=== PATIENT | male | born 1955 | race Caucasian/White ===

== ENCOUNTER 2021-06-23 10:20 | Observation (INO) | payer MEDICARE ==
[~2021-06-23] VITALS: Ht 185.4 cm; Wt 97.9 kg
[2021-06-23] MEDS: DIVALPROEX 500MG *ER* TAB PO SCH ×2 (09:00→20:51)
[2021-06-23] MEDS ORDERED: NS 1,000 ML IV ONE (10:40)
[2021-06-23] MEDS ORDERED: LORazepam 2 MG/ML VIAL IV STA (11:05)
[2021-06-23 11:08] LABS: BASO # 0.1 10^3/uL (0.0-0.2); BASO % 0.8 % (0.0-1.0); EOS % 0.5 % (0.0-3.0); HEMATOCRIT 49.5 % (42.0-52.0); HEMOGLOBIN 16.7 g/dl (13.5-17.5); LYMPH # 2.2 10^3/uL (1.5-5.0); LYMPH % 26.1 % (24.0-44.0); MEAN CORPUSCULAR HEMOGLOBIN 29.7 pg (27.0-33.0); MEAN CORPUSCULAR HGB CONC 33.7 g/dl (32.0-36.5); MEAN CORPUSCULAR VOLUME 88.1 fl (80.0-96.0); MONO # 0.6 10^3/uL (0.0-0.8); NEUTROPHILS # 5.5 10^3/uL (1.5-8.5); NEUTROPHILS % 64.4 % (36.0-66.0); PLATELET COUNT, AUTOMATED 208 10^3/uL (150-450); RED BLOOD COUNT 5.62 10^6/uL (4.30-6.10); WHITE BLOOD COUNT 8.6 10^3/uL (4.0-10.0)
[2021-06-23 11:39] LABS: ALBUMIN 4.2 GM/DL (3.2-5.2); ALT/SGPT 30 U/L (12-78); BILIRUBIN,DIRECT 0.2 MG/DL (0.0-0.2); BILIRUBIN,TOTAL 0.9 MG/DL (0.2-1.0); BLOOD UREA NITROGEN 17 MG/DL (7-18); CALCIUM LEVEL 9.4 MG/DL (8.8-10.2); CARBON DIOXIDE LEVEL 17 MEQ/L (21-32); CHLORIDE LEVEL 103 MEQ/L (98-107); CK-MB VALUE MASS < 1.0 NG/ML (<3.6); CPK CREATINE PHOSPHOKINASE 100 U/L (39-308); CREATININE FOR GFR 1.46 MG/DL (0.70-1.30); GLOMERULAR FILTRATION RATE 51.1 (>49); GLUCOSE, FASTING 151 MG/DL (70-100); PROLACTIN 55.7 NG/ML (2.1-17.7); SODIUM LEVEL 137 MEQ/L (136-145); TOTAL PROTEIN 7.8 GM/DL (6.4-8.2); TROPONIN I < 0.02 NG/ML (< 0.10); VALPROIC ACID (DEPAKOTE) 13.8 UG/ML (50.0-100.0)
[2021-06-23 12:22] LABS: VENOUS BASE EXCESS -9.5 (-2.0-2.0); VENOUS HCO3 17.7 MEQ/L (23.0-27.0); VENOUS O2 SATURATION 70.5 % (60.0-80.0); VENOUS PARTIAL PRESSURE O2 42.4 mmHg (30.0-50.0); VENOUS PH 7.233 UNITS (7.330-7.430); VENOUS STANDARD HCO3 16.5 MEQ/L
[2021-06-23 12:48] LABS: ETHYL ALCOHOL (ETHANOL) < 0.003 % (0.000-0.010)
[2021-06-23] MEDS ORDERED: CLON2TAB7 PO (13:00)
[2021-06-23] MEDS ORDERED: DIVA500T9 PO (13:00)
[2021-06-23] MEDS ORDERED: OLAN1TAB20 PO (13:00)
[2021-06-23] MEDS ORDERED: ALPR1TAB3 PO (13:00)
[2021-06-23] MEDS ORDERED: TRAZ-189 PO (13:00)
[2021-06-23] MEDS ORDERED: HOME MED LIST COMPLETE! XX SCH (13:05)
[2021-06-23] MEDS ORDERED: ACETAMINOPHEN TAB 650MG DOSE (2X325MG) PO PRN (13:10)
[2021-06-23] MEDS ORDERED: ALPRAZolam 0.5 MG TAB PO PRN (13:10)
[2021-06-23 13:12] LABS: RSV AMPLIFICATION NEGATIVE (NEGATIVE)
[2021-06-23 16:31] VITALS: BP 137/77
[2021-06-23] MEDS: NS 1,000 ML IV SCH ×2 (17:16→20:50)
[2021-06-23 18:01] LABS: AMPHETAMINES LEVEL URINE NEGATIVE (NEGATIVE); BARBITURATES URINE NEGATIVE (NEGATIVE); BENZODIAZEPINES URINE NEGATIVE (NEGATIVE); CANNABINOIDS URINE NEGATIVE (NEGATIVE); COCAINE METABOLITE URINE NEGATIVE (NEGATIVE); METHADONE URINE NEGATIVE (NEGATIVE); OPIATES URINE NEGATIVE (NEGATIVE); PHENCYCLIDINE URINE NEGATIVE (NEGATIVE)
[2021-06-23] MEDS ORDERED: OLANZapine 10 MG TAB PO SCH (21:00)
[2021-06-23] MEDS ORDERED: traZODone 100 MG TAB PO SCH (21:00)
[2021-06-23] MEDS ORDERED: clonazePAM 1 MG TAB PO SCH (21:00)
[2021-06-23 22:00] VITALS: BP 105/56
[2021-06-24 05:50] LABS: HEMATOCRIT 42.7 % (42.0-52.0); MEAN CORPUSCULAR HEMOGLOBIN 29.8 pg (27.0-33.0); MEAN CORPUSCULAR HGB CONC 33.7 g/dl (32.0-36.5); MEAN CORPUSCULAR VOLUME 88.2 fl (80.0-96.0); PLATELET COUNT, AUTOMATED 157 10^3/uL (150-450); RED BLOOD COUNT 4.84 10^6/uL (4.30-6.10); WHITE BLOOD COUNT 7.6 10^3/uL (4.0-10.0)
[2021-06-24 05:51] LABS: HEMOGLOBIN 14.4 g/dl (13.5-17.5)
[2021-06-24 06:00] VITALS: BP 111/58
[2021-06-24 06:08] LABS: BLOOD UREA NITROGEN 13 MG/DL (7-18); C REACTIVE PROTEIN QUANTITATIV 2.57 MG/DL (0.00-0.30); CARBON DIOXIDE LEVEL 29 MEQ/L (21-32); CHLORIDE LEVEL 107 MEQ/L (98-107); GLOMERULAR FILTRATION RATE > 60.0 (>49); GLUCOSE, FASTING 87 MG/DL (70-100); POTASSIUM SERUM 3.7 MEQ/L (3.5-5.1); SODIUM LEVEL 140 MEQ/L (136-145)
[2021-06-24 06:12] LABS: ERYTHROCYTE SEDIMENTATION RATE 3 mm/hr (0-20)
[2021-06-24] MEDS: DIVALPROEX 500MG *ER* TAB PO SCH (08:23)
[2021-06-24] MEDS ORDERED: DEPA500T2 PO (13:01)
== END 2021-06-24 15:36 | disposition home or self-care (01) ==
LOC: M ED 10:20 → EDBD 10:20 → M ED INP 10:21 → ENRESERV 14:48 → M MSPAV 16:31
PROVIDERS: ADMIT Internal Medicine; ATTEND Internal Medicine
DX: R25.8 Other abnormal involuntary movements (principal); N17.9 Acute kidney failure, unspecified; F31.9 Bipolar disorder, unspecified; R29.6 Repeated falls; Z79.899 Other long term (current) drug therapy; F17.200 Nicotine dependence, unspecified, uncomplicated
CPT/HCPCS: 36415; 70450; 70551; 71045; 76775; 80048; 80076; 80164; 80307; 81001; 82077; 82550; 82553; 82803; 83605; 84146; 84443; 84484; 85025; 85027; 85652; 86140; 87631; 93005; 93041; 95819; 96361; 96374; 99285; G0378; J2060

== ENCOUNTER 2023-07-07 08:49 | Emergency (ER) | payer MEDICARE ==
[~2023-07-07] VITALS: Ht 185.4 cm; Wt 97.7 kg
[~2023-07-07 08:49] MED LIST: ALPR1TAB3 PO; CLON2TAB7 PO; DEPA500T2 PO; DIVA500T9 PO; OLAN1TAB20 PO; TRAZ-189 PO
[2023-07-07] MEDS ORDERED: OLAN1TAB16 PO (11:09)
[2023-07-07] MEDS ORDERED: CLON1TAB8 PO (11:09)
[2023-07-07] MEDS ORDERED: TAMS1CAP17 PO (11:09)
[2023-07-07] MEDS ORDERED: CANEMIS41 XX (11:50)
[2023-07-07] MEDS ORDERED: NORCO, ANEXSIA 5/325MG TABLET (HYDROcodone/ACETAMINOPHEN) PO ONE (11:55)
[2023-07-07] MEDS ORDERED: HYDR-3713 PO (11:58)
[2023-07-07 12:04] VITALS: BP 127/67; TEMP 96.2; O2SAT 96
== END 2023-07-07 12:16 | disposition home or self-care (01) ==
LOC: M ED 08:49
DX: G57.91 Unspecified mononeuropathy of right lower limb (principal); M54.50 Low back pain, unspecified; S23.41XA Sprain of ribs, initial encounter; W01.0XXA Fall on same level from slipping, tripping and stumbling without subsequent striking against object, initial encounter; Y92.009 Unspecified place in unspecified non-institutional (private) residence as the place of occurrence of the external cause; Y93.01 Activity, walking, marching and hiking; Y99.8 Other external cause status; Z79.899 Other long term (current) drug therapy

== ENCOUNTER 2024-06-07 18:02 | Emergency (ER) | payer MEDICARE ==
[~2024-06-07] VITALS: Ht 185.4 cm; Wt 101.0 kg
[~2024-06-07 18:02] MED LIST changes: +CANEMIS41 XX; +CLON1TAB8 PO; +HYDR-3713 PO; +OLAN1TAB16 PO; +TAMS1CAP17 PO
[2024-06-07 19:24] LABS: VALPROIC ACID (DEPAKOTE) 27.6 UG/ML (50.0-100.0)
[2024-06-07 19:32] LABS: ALBUMIN 3.5 G/DL (3.2-5.2); ALKALINE PHOSPHATASE 53 U/L (46-116); ALT/SGPT 27 U/L (7.0-40); AST/SGOT 51 U/L (<34); BILIRUBIN,DIRECT 0.2 MG/DL (<0.4); BILIRUBIN,TOTAL 0.5 MG/DL (0.3-1.2); BLOOD UREA NITROGEN 14 MG/DL (9-23); CALCIUM LEVEL 8.4 MG/DL (8.3-10.6); CARBON DIOXIDE LEVEL 22 MMOL/L (20-31); CHLORIDE LEVEL 101 MMOL/L (98-107); CREATININE FOR GFR 0.94 MG/DL (0.70-1.30); GLOMERULAR FILTRATION RATE > 60.0 (>42); GLUCOSE, FASTING 103 MG/DL (74-106); MAGNESIUM LEVEL 2.2 MG/DL (1.8-2.4); PHOSPHORUS LEVEL 2.2 MG/DL (2.4-5.1); POTASSIUM SERUM 5.3 MMOL/L (3.5-5.1); SODIUM LEVEL 131 MMOL/L (136-145); TOTAL PROTEIN 6.7 G/DL (5.7-8.2)
[2024-06-07] MEDS: ACETAMINOPHEN TAB 650MG DOSE (2X325MG) PO ONE (20:15)
[2024-06-07] MEDS ORDERED: LORazepam 2 MG/ML 1ML VIAL As Ordered ONE (20:16)
[2024-06-07] MEDS: LORazepam 2 MG/ML 1ML VIAL IV STA (20:31)
[2024-06-07 21:06] LABS: BASO % 0.3 % (0.0-1.0); EOS % 0.1 % (0.0-3.0); HEMATOCRIT 41.7 % (42.0-52.0); HEMOGLOBIN 14.1 g/dl (13.5-17.5); LYMPH # 1.1 10^3/uL (1.5-5.0); LYMPH % 10.4 % (24.0-44.0); MEAN CORPUSCULAR HEMOGLOBIN 30.3 pg (27.0-33.0); MEAN CORPUSCULAR HGB CONC 33.8 g/dl (32.0-36.5); MEAN CORPUSCULAR VOLUME 89.7 fl (80.0-96.0); MONO # 0.6 10^3/uL (0.0-0.8); MONO % 5.9 % (2.0-8.0); NEUTROPHILS # 8.3 10^3/uL (1.5-8.5); NEUTROPHILS % 82.8 % (36.0-66.0); PLATELET COUNT, AUTOMATED 157 10^3/uL (150-450); RED BLOOD COUNT 4.65 10^6/uL (4.30-6.10); WHITE BLOOD COUNT 10.1 10^3/uL (4.0-10.0)
[2024-06-07] MEDS: VALPROATE SOD IV ONE (21:49)
[2024-06-07] MEDS: ONDANSETRON 4MG 2ML VIAL IV ONE (21:49)
[2024-06-07] MEDS: D5W IV ONE (21:49)
[2024-06-07 22:02] LABS: BLOOD UREA NITROGEN 15 MG/DL (9-23); CALCIUM LEVEL 8.6 MG/DL (8.3-10.6); CARBON DIOXIDE LEVEL 27 MMOL/L (20-31); CHLORIDE LEVEL 99 MMOL/L (98-107); CREATININE FOR GFR 0.98 MG/DL (0.70-1.30); GLOMERULAR FILTRATION RATE > 60.0 (>42); GLUCOSE, FASTING 98 MG/DL (74-106); POTASSIUM SERUM 3.9 MMOL/L (3.5-5.1); SODIUM LEVEL 134 MMOL/L (136-145)
[2024-06-07] MEDS ORDERED: DEPA250T2 PO (23:13)
[2024-06-07] MEDS: NS 1,000 ML IV ONE (23:30)
[2024-06-08] VITALS: BP 116/57
[2024-06-08 00:02] VITALS: TEMP 98.7
[2024-06-08] MEDS: clonazePAM 1 MG TAB PO ONE (00:06)
[2024-06-08 00:15] VITALS: O2SAT 94
== END 2024-06-08 00:54 | disposition home or self-care (01) ==
LOC: M ED 18:02
DX: G40.909 Epilepsy, unspecified, not intractable, without status epilepticus (principal); Z79.1 Long term (current) use of non-steroidal anti-inflammatories (NSAID); Z79.899 Other long term (current) drug therapy
CPT/HCPCS: 70450; 71045; 80048; 80076; 80164; 80299; 82330; 83605; 83735; 84100; 85025; 87040; 87077; 87186; 87486; 87581; 87633; 87798; 93041; 94760; 96361; 96365; 96374; 96375; 99285; J2060; J2405